=== PATIENT | male | born 1995 | race Hispanic/Latino ===

== ENCOUNTER 2020-06-25 05:32 | Emergency (ER) | payer BC, OTHER ==
[2020-06-25 05:51] VITALS: TEMP 99
--- NOTE | 2020-06-25 05:54 | ED.PDOC ---
History of Present Illness - General Chief Complaint: Trauma Stated Complaint: injury to left ankle Time Seen by Provider: 06/25/20 05:45 Source: patient, RN notes reviewed, Vital Signs reviewed, EMS notes reviewed Exam Limitations: intoxication - History of Present Illness Initial Comments: Patient is a 25-year-old male who presents with complaints of left ankle pain. Patient has been drinking this evening and not/would not tell me how he injured his left ankle. He was brought in by EMS. Patient complains of left ankle pain. He cannot quantify how severe the pain is. Pain is worse with movement. Pain was improved after fentanyl 100 mcg IV push and morphine 3 mg IV push by EMS. Pain is constant. Occurred: just prior to arrival Pain Location: lower extremity - Left ankle Method of Injury: fall Improving Factors: medication Worsening Factors: movement Loss of Consciousness: no loss of consciousness Associated Symptoms (Fall): denies symptoms Allergies/Adverse Reactions: Allergies NO KNOWN ALLERGY Allergy (Verified 06/25/20 05:51) Home Medications: Ambulatory Orders Tetnlhbxyqpmt-Semt-Mxgfkikwux [Fioricet] 1 ea PO Q8H PRN #21 tab 03/17/16 Acetaminophen [Mapap] 500 mg PO Q6HR PRN #60 cap 05/21/16 Hyoscyamine Sulfate [Levsin] 0.125 mg PO Q6HR PRN #20 tab 05/21/16 Acetaminophen W/ Codeine [Tylenol W/ CODEINE #3] 1 tablet PO Q6H #20 ea 06/25/20 Ondansetron [Ondansetron Odt] 4 mg PO Q6H #20 tab 06/25/20 Review of Systems - Review of Systems Constitutional: States: no symptoms reported, see HPI. Denies: chills, fever, malaise, weakness EENTM: States: no symptoms reported. Denies: eye pain, blurred vision, double vision Respiratory: States: no symptoms reported. Denies: cough, short of breath Cardiology: States: no symptoms reported. Denies: chest pain, palpitations, syncope Gastrointestinal/Abdominal: States: no symptoms reported. Denies: abdominal pain, diarrhea, nausea, vomiting Genitourinary: States: no symptoms reported. Denies: dysuria, frequency Musculoskeletal: States: joint pain - Left ankle, joint swelling - Left ankle Skin: States: no symptoms reported. Denies: change in color, rash Endocrine: States: no symptoms reported. Denies: increased hunger, increased thirst, increased urine Hematologic/Lymphatic: States: no symptoms reported. Denies: blood clots, easy bleeding All other Systems: Reviewed and Negative Past Medical History (General) - Patient Medical History Hx Seizures: No Hx Stroke: No Hx Asthma: No Hx Cardiac Disorders: No Hx Hypertension: No Hx Diabetes: No - Vaccination History Hx Influenza Vaccination: No Family Medical History - Family History Mother Family History: No Known Living Status: Unknown Physical Exam - Physical Exam General Appearance: Alert, Anxious, Obvious distress, Well Developed, Well Groomed, Well Hydrated, Well Nourished, Other - Patient smells of alcohol. Head Injury: no evidence of injury Eye Exam: bilateral normal ENT Exam: hearing grossly normal, no evidence of ENT injury, no dental injury Neck Exam: non-tender, full range of motion, normal alignment Cardiovascular/Respiratory: regular rate, rhythm, no M/R/G, normal peripheral pulses, no JVD, normal breath sounds, no respiratory distress Gastrointestinal/Abdominal: normal bowel sounds, non tender, soft Back Exam: normal inspection, no CVA tenderness, no vertebral tenderness Extremity Exam: pain with movement, tenderness, unable to bear weight, other - ankle is deformed. 2+ DP/PT pulses. Cap refill <2 seconds. No skin disruption. 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 Splint has been placed. Good reduction of the fracture. The fracture has been stabilized. Plan on discharge home with a prescription for pain medication along with a referral to orthopedics for surgical repair of his ankle. I discussed the plan of care with the patient and his girlfriend and they voiced understanding and agreement with the plan of care. Dean Aguiar M.D. - Results/Orders Results/Orders: EXAM: XR Left Ankle Complete, 3 or More Views CLINICAL HISTORY: The patient is 25 years old and is Male; left ankle pain and deformity TECHNIQUE: Three views of the left ankle. COMPARISON: No relevant prior studies available. FINDINGS: Bones/joints: Tibiotalar joint subluxation/dislocation. Oblique, mildly displaced lateral malleolus fracture. Soft tissues: Soft tissue swelling. IMPRESSION: 1. Tibiotalar joint subluxation/dislocation. 2. Acute lateral malleolus fracture. Electronically signed by: Kat Mondragon MD 06/25/2020 6:15 AM Post reduction films show significant improvement in fracture alignment. Official read is pending. Procedures - Splinting Left Ankle Hand-Made Type: fiberglass Splint: posterior LE splint Pre-Proc Neuro Vasc Exam: normal Post-Proc Neuro Vasc Exam: normal Progress: Procedure: Posterior splint placed Indication: Ankle fracture needing immobilization Procedure: Preprocedurally patient was neurovascularly intact. Cap refill was less than 2 seconds and he had 2+ DP and PT pulses. Ankle was reduced and held into place and then cotton batting rolls were wrapped from the toes circumfer entially, loosely around the foot and extending cranially to the upper calf. A posterior splint made from fiberglass was placed and an Jeremy wrap was wrapped from the toes cephaladly to the upper calf. The splint was held in place until it hardened. There was good reduction and the cap refill was less than 2 seconds and patient had no numbness in the toes. Patient tolerated the procedure well. There were no complications. Departure - Departure Clinical Impression: Fall Qualifiers: Encounter type: initial encounter Qualified Code(s): W19.XXXA - Unspecified fall, initial encounter Dislocation of ankle joint Qualifiers: Encounter type: initial encounter Laterality: left Qualified Code(s): S93.05XA - Dislocation of left ankle joint, initial encounter Ankle fracture, lateral malleolus, closed Qualifiers: Encounter type: initial encounter Fracture alignment: displaced Laterality: left Qualified Code(s): S82.62XA - Displaced fracture of lateral malleolus of left fibula, initial encounter for closed fracture Time of Disposition: 06:40 Disposition: Discharge to Home or Self Care Condition: Good Departure Forms: ED Discharge - Pt. Copy, Patient Portal Self Enrollment Instructions: DI for Trauma, Ankle Dislocation (DC), Ankle Fracture (DC), Fibula Fracture (DC) Diet: resume usual diet Activity: no pushing/pulling with affected limb, other - Non weight bearing on fractured ankle Referrals: Guille Cunha MD [Primary Care Provider] - 1-5 Days Jose Borges MD [Active Staff] - 1-5 Days Prescriptions: Ondansetron [Ondansetron Odt] 4 mg PO Q6H #20 tab Acetaminophen W/ Codeine [Tylenol W/ CODEINE #3] 1 tablet PO Q6H #20 ea Home Medications: Ambulatory Orders Wnwqzsysadode-Rabo-Uwekmcpwit [Fioricet] 1 ea PO Q8H PRN #21 tab 03/17/16 Acetaminophen [Mapap] 500 mg PO Q6HR PRN #60 cap 05/21/16 Hyoscyamine Sulfate [Levsin] 0.125 mg PO Q6HR PRN #20 tab 05/21/16 Acetaminophen W/ Codeine [Tylenol W/ CODEINE #3] 1 tablet PO Q6H #20 ea 06/25/20 Ondansetron [Ondansetron Odt] 4 mg PO Q6H #20 tab 06/25/20
--- NOTE | 2020-06-25 06:17 | RAD ---
EXAM: XR Left Ankle Complete, 3 or More Views CLINICAL HISTORY: The patient is 25 years old and is Male; left ankle pain and deformity TECHNIQUE: Three views of the left ankle. COMPARISON: No relevant prior studies available. FINDINGS: Bones/joints: Tibiotalar joint subluxation/dislocation. Oblique, mildly displaced lateral malleolus fracture. Soft tissues: Soft tissue swelling. IMPRESSION: 1. Tibiotalar joint subluxation/dislocation. 2. Acute lateral malleolus fracture. Electronically signed by: Kat Mondragon MD 06/25/2020 6:15 AM [facility]
[2020-06-25] MEDS ORDERED: ACETAMINOPHEN W/COD #3 TAB (ER Disp) PO ONE (06:44)
--- NOTE | 2020-06-25 06:49 | RAD ---
EXAM: XR Left Ankle Complete, 3 or More Views CLINICAL HISTORY: The patient is 25 years old and is Male; left ankle frx. Post reduction films. TECHNIQUE: Frontal, lateral and oblique views of the left ankle. COMPARISON: X-ray ankle left 06/25/2020 5:58 AM. FINDINGS: Bones/joints: Oblique mildly displaced fracture of the distal fibula. No dislocation. Soft tissues: Unremarkable. IMPRESSION: Oblique mildly displaced fracture of the distal fibula. Electronically signed by: Jose Overton MD 06/25/2020 6:47 AM [facility]
[2020-06-25 07:00] VITALS: BP 123/78; O2SAT 97
== END 2020-06-25 07:10 | disposition home or self-care (01) ==
LOC: ER 05:32
DX: S82.62XA Displaced fracture of lateral malleolus of left fibula, initial encounter for closed fracture (principal); X58.XXXA Exposure to other specified factors, initial encounter; Y92.9 Unspecified place or not applicable

== ENCOUNTER 2020-06-28 05:50 | Day surgery (SDC) | payer OTHER ==
[2020-06-28] MEDS ORDERED: ceFAZolin SODIUM 1 GM VIAL ONE ×2 (05:53→06:30)
[2020-06-28] MEDS ORDERED: SCOPOLAMINE PATCH 1.5MG 1 EA TD ONE (05:53)
[2020-06-28] MEDS ORDERED: SODIUM CHL 0.9% 100ML MINI-BAG 100 ML IVPB ONE (05:53)
[2020-06-28] MEDS ORDERED: LACTATED RINGERS 1,000 ML ONE (05:53)
[2020-06-28] MEDS ORDERED: BUPIVACAINE LIPOSOME 13.3 MG/ML VIAL INJ ONE (06:28)
[2020-06-28] MEDS ORDERED: BUPIVACAINE 0.5% 30 ML VIAL INJ ONE (06:28)
[2020-06-28] MEDS ORDERED: VANCOMYCIN HCL INJ 1,000 MG VIAL IVPB ONE (06:30)
[2020-06-28] MEDS ORDERED: LACTATED RINGERS 1,000 ML IVS ONE (06:35)
[2020-06-28] MEDS ORDERED: MIDAZOLAM INJ 5 MG/5 ML VIAL ONE (06:36)
[2020-06-28] MEDS ORDERED: DEXMEDETOMIDINE HCL 200 MCG/2 ML INJ IV ONE (06:36)
[2020-06-28] MEDS ORDERED: KETAMINE HCL 100 MG/ML VIAL ONE (06:36)
[2020-06-28] MEDS ORDERED: FAMOTIDINE INJ 10 MG/ML VIAL IV ONE (06:36)
[2020-06-28] MEDS ORDERED: ACETAMINOPHEN IV 1000MG 100 ML ONE (06:37)
[2020-06-28] MEDS ORDERED: SODIUM CHLORIDE 0.9% 50 ML VIAL ONE (07:00)
[2020-06-28] MEDS ORDERED: MAGNESIUM SULFATE INJ 1 GM/2 ML VIAL ONE (07:00)
[2020-06-28] MEDS ORDERED: ONDANSETRON INJ 4 MG/2 ML VIAL ONE (07:00)
[2020-06-28] MEDS ORDERED: PROPOFOL 200 MG/20 ML VIAL IV ONE ×2 (07:00)
[2020-06-28] MEDS ORDERED: DEXAMETHASONE INJ 10 MG/ML VIAL ONE (07:00)
[2020-06-28] MEDS: VANCOMYCIN HCL INJ 1,000 MG VIAL IVPB ONE ×2 (08:21→09:05)
[2020-06-28] MEDS: ceFAZolin SODIUM 1 GM VIAL ONE ×2 (08:21→09:05)
--- NOTE | 2020-06-28 10:42 | RAD ---
EXAM DESCRIPTION: Ankle,Left 2 Views CLINICAL HISTORY: 25 years, Male, post op ortho dr redmond COMPARISON: Previous x-ray images June 25, 2020 at 6:34 AM TECHNIQUE: AP/lateral/oblique of the left ankle FINDINGS: Plate and screws are seen in the distal left fibula with a screw traversing the distal fibula and tibial metaphysis. Air is seen in the soft tissues medially. Lateral view shows normal alignment of the bones of the hindfoot. No fracture of the talus or calcaneus. Anterior and posterior ankle joint spurring. IMPRESSION: Internal fixation of distal left fibular fracture with anatomic alignment. Electronically signed by: Az Izquierdo MD 06/28/2020 10:40 AM [facility]
[2020-06-28 11:50] VITALS: BP 102/60; TEMP 98; O2SAT 97
--- NOTE | 2020-06-28 12:32 | RAD ---
Intraoperative radiographs of the left ankle Indication: ORIF Comparison: None Impression: ORIF of a distal fibular fracture with lateral plate and screw construct and tibiofibular syndesmotic screw. Fluoroscopy time 63 seconds. 3 images submitted. Electronically signed by: Sourav Escamilla MD 06/28/2020 12:31 PM [facility] [id number]
--- NOTE | 2020-06-29 09:21 | OP ---
DATE OF PROCEDURE: 06/28/20 PREOPERATIVE DIAGNOSIS: 1. Left ankle fracture. POSTOPERATIVE DIAGNOSIS: 1. Left ankle fracture. PROCEDURE: 1. Open reduction and internal fixation of left ankle. SURGEON: Jose Borges MD IT BUSINESS PROCESS ARCHITECT: Gilberto Llanos CST, SA-C ANESTHESIA: General anesthesia. COMPLICATIONS: None. FINDINGS: 1. Oblique fracture of the fibula. 2. Instability of the ankle mortise. INDICATION: Scotty is a 25-year-old male who fell after he stepped into a pothole. Because of that, he had the acute onset of pain. After being seen in the Emergency Room, he was placed in a splint and sent to me. He and I discussed his diagnosis as well as the risks, benefits and alternatives to operative therapy. We additionally discussed filming the procedure and my use of those images for social media purposes to educate. Informed consent was obtained for ORIF and the use of filming/photos. PROCEDURE: The patient was brought to the Operating Room and placed in supine position. General anesthesia was induced. The patient's leg was sterilely prepped and draped. Following prepping and draping, an incision was made at the lateral aspect of the fibula. Dissection was carried down to the fibula and the fracture was identified. The fracture was mobilized and reduced. Following reduction of the fracture, the lag screw was placed from anterior to posterior. A plate was then applied to the lateral aspect of the fibula. A single syndesmosis screw was placed and the ankle was stressed under fluoroscopic imaging. After stressing the ankle and noting stability, the wound was very thoroughly irrigated and closed with a combination of running and interrupted subcuticular stitches. Sterile dressings were placed. The patient was awoken from anesthesia and taken to Recovery. POSTOPERATIVE PLAN: The patient will be non-weightbearing. He will followup with us in [id number] [facility]
== END 2020-06-28 11:35 | disposition home or self-care (01) ==
LOC: AMB 05:50
PROVIDERS: ATTEND Orthopaedic Surgery
DX: S82.62XA Displaced fracture of lateral malleolus of left fibula, initial encounter for closed fracture (principal); W18.40XA Slipping, tripping and stumbling without falling, unspecified, initial encounter
CPT/HCPCS: 01480; 27792; 36415; 73600; 76000; 80048; 80307; 81001; 85025; 87070; A4216; C1713; J0690; J1100; J2250; J2405; J3370; J3475; J3490; J7050; J7120

== ENCOUNTER → 2020-08-04 | Outpatient (CLI) | payer OTHER ==
--- NOTE | 2020-08-04 09:57 | RAD ---
EXAM DESCRIPTION: Ankle,Left 3 Views CLINICAL HISTORY: 25 years Male, FRACTURE COMPARISON: 06/28/2020 TECHNIQUE: 3 view radiograph of the left ankle. IMPRESSION: Redemonstrated lateral screw-plate fixation traversing a distal fibular fracture of the syndesmotic screw in place traversing the distal fibula and distal tibia. No hardware complication. Ankle mortise appears symmetric and maintained. Moderate patellar joint effusion. Talar dome intact. No acute displaced fracture. Lucent fracture line of the distal fibula remains visible on lateral view with no significant sclerosis or surrounding callus formation. Improved but residual mild soft tissue swelling about the ankle. Electronically signed by: Gee Crews MD 08/04/2020 9:56 AM [facility]
== END ==
LOC: RAD 08:03
PROVIDERS: ATTEND Orthopaedic Surgery
DX: S82.62XD Displaced fracture of lateral malleolus of left fibula, subsequent encounter for closed fracture with routine healing (principal); Z98.890 Other specified postprocedural states; M25.462 Effusion, left knee; M79.9 Soft tissue disorder, unspecified